=== PATIENT | male | born 1955 | race Asian ===

== ENCOUNTER 2017-03-01 15:35 | Emergency (ER) | payer BC ==
[~2017-03-01] VITALS: Ht 185.4 cm; Wt 78.0 kg
[2017-03-01 15:41] VITALS: BP 124/80
[2017-03-01] MEDS ORDERED: BACITRACIN TOP OINT 1 UD PKG TOP ONE (16:15)
[2017-03-01] MEDS ORDERED: LIDOCAINE 1% HCL (LOCAL ANESTH.) INJ 20ML MDV IJ ONE (16:15)
[2017-03-01] MEDS ORDERED: TETANUS-DIPTH-ACEL PERTUSSIS 0.5ML SYRG IM ONE (16:15)
== END 2017-03-01 16:59 | disposition home or self-care (01) ==
LOC: ER 15:43
DX: S01.81XA Laceration without foreign body of other part of head, initial encounter (principal); W22.8XXA Striking against or struck by other objects, initial encounter; Y93.89 Activity, other specified; Y92.89 Other specified places as the place of occurrence of the external cause; Y99.8 Other external cause status
CPT/HCPCS: 12013; 90471; 90715; 99283; J2001